=== PATIENT | female | born 1960 | race Caucasian/White ===

== ENCOUNTER 2016-04-09 16:02 | Inpatient (IN) ==
[2016-04-09] MEDS ORDERED: RIZATRIPTAN ODT 5 MG TABLET PO STA (16:45)
[2016-04-09] MEDS ORDERED: ONDANSETRON 4 MG/2 ML VIAL IV STA (16:45)
[2016-04-09] MEDS ORDERED: SODIUM CHLORIDE 0.9% 1,000 ML IV ONE (16:45)
[2016-04-09] MEDS ORDERED: LABETALOL 20 MG/4 ML SYRINGE IV ONE ×2 (16:48→18:11)
[2016-04-09] MEDS ORDERED: LABETALOL 20 MG/4 ML SYRINGE IV STA ×2 (16:54→18:50)
--- NOTE | 2016-04-09 16:55 | Emergency Department Note ---
Lin Garza Gwan, am scribing for, and in the presence of, Julio César Oneill MD 16 :52. Nino Garza Charles R, MD, personally performed the services described in this documentation, ascribed by Lolis Ceballos in my presence, and it is both accurate and complete 655 . Arrival - Arrival Chief Complaint: Nausea/Vomiting/Diarrhea Stated Complaint: Nausea and vomiting ED Nursing Triage Note: Started vomitting after taking Trulicity this Am. States that it usually makes her nauseated and take Zofran for it but was not releived by the zofran. Denies abdominal pain Mode of Arrival: Stretcher Limitations: No Limitations Source: Patient, Family, Old Records Reviewed, RN Notes Reviewed Time Seen by Provider: 04/09/16 16:21 - History of Present Illness HPI Narrative: Pt is a 55 y/o female, with a hx of IDDM and HTN, who presents to the ED for further evaluation of N/V and weakness with an onset this morning. Patient stated that 30 minutes after she took her Trulicity shot this morning she began to have N/V and weakness followed by a WEBSTER prompting her visit to the ED today. She confirmed that she takes her shot at the same time every morning and that she has been taking it for the past 3-4 months. Patient denies any weight loss or having these sxs before. She stated that she ate before taking her shot with no problems. Patient denies smoking cigarettes, drug or ETOH use. Family noted that is not compliant with medication prescribed for DM or HTN. No other problems/complaints reported in ED. Onset (ago): hour(s) Consistency: constant Severity: moderate Allergies/Adverse Reactions: Allergies Allergy/AdvReac Type Severity Reaction Status Date / Time SARA Inhibitors Allergy ITCHING Verified 08/21/14 19:09 Home Medications: Home Medications Medication Instructions Recorded Confirmed Type Canagliflozin [Invokana] 300 mg PO AC BREAKFAST 08/21/14 04/09/16 History HYDROcodone/ACETAMIN 10-325 [[place] 1 tablet PO Q6H PRN 08/21/14 04/09/16 History 10-325] Amitriptyline HCl [Amitriptyline 50 mg PO BEDTIME 04/09/16 04/09/16 History HCl] Carvedilol [Carvedilol] 25 mg PO BID 04/09/16 04/09/16 History Dulaglutide [Trulicity] 1.5 mg SUBCUT TH 04/09/16 04/09/16 History Duloxetine HCl [Duloxetine] 60 mg PO DAILY 04/09/16 04/09/16 History Levothyroxine Tab [Synthroid Tab] 112 mcg PO DAILY@0700 04/09/16 04/09/16 History Ondansetron HCl [Ondansetron HCl] 4 mg PO Q8H PRN 04/09/16 04/09/16 History Pregabalin [Lyrica] 100 mg PO TID 04/09/16 04/09/16 History Pyridoxine Tab [Vitamin B6 Tab] 100 mg PO DAILY 04/09/16 04/09/16 History Review of System - Review of System 12 point system: reviewed and no additional remarkable complaints except as stated - Review of System Constitutional: Present: as per HPI, weakness Gastrointestinal: Present: as per HPI, nausea, vomiting Medical,Surgical,& Family Hx - Medical History Cardio: History of: Hypertension Psychological: History of: Depression Endocrine: History of: Diabetes Mellitus (IDDM) Gastrointestinal: History of: Pancreatitis Musculoskeletal: History of: Back/Neck Problems - Surgical History Abdominal Surgeries: Surgical HX of: Cholecystectomy Reproductive Surgeries: Surgical HX of;: Section, Hysterectomy Orthopedic Surgeries: Surgical HX of;: Total Knee Replacement - Social History Smoking Status: Never smoker Frequency of Alcohol Use: None Type of Drug Use: None Exam Vital Signs: Vital Signs Temperature 97.1 F L 04/09/16 16:06 Pulse Rate 107 H 04/09/16 16:06 Respiratory Rate 18 04/09/16 16:06 Blood Pressure 181/111 04/09/16 16:06 O2 Sat by Pulse Oximetry 98 04/09/16 16:06 - General General appearance: alert, lethargic, other (generalized weakness; moves slowly) - Head Head exam: Present: atraumatic, normocephalic - Eye Eye exam: Present: normal appearance, PERRL, EOMI - ENT ENT exam: Present: normal exam, normal oropharynx, mucous membranes moist, TM's normal bilaterally - Neck Neck exam: Present: full ROM, trachea midline. Absent: tenderness, meningismus , lymphadenopathy, thyromegaly - Chest Chest inspection: Present: symmetric chest wall rise. Absent: tenderness - Respiratory Respiratory exam: Present: normal lung sounds bilaterally. Absent: respiratory distress - Cardiovascular Cardiovascular exam: Present: regular rate, normal rhythm, normal heart sounds. Absent: murmur, rubs, gallop - Abdominal Exam Abdominal exam: Present: soft, normal bowel sounds. Absent: distention, tenderness, guarding - Extremities Exam Extremities exam: Present: full ROM. Absent: tenderness, pedal edema, calf tenderness - Back Exam Back exam: Present: full ROM. Absent: tenderness - Neurological Exam Neurological exam: Present: alert, oriented X3, CN II-XII intact. Absent: motor sensory deficit - Psychiatric Psychiatric exam: Present: flat affect - Skin Skin exam: Present: warm, dry, intact, normal color Course - Consultations Consultation #1: Dr. Ambrose will admit patient Time: 19:17 Results - Labs CBC & BMP: 04/09/16 17:55 04/09/16 17:55 Lab Results: I have reviewed the patients labs Labs: Laboratory Tests 04/09/16 17:55 WBC 9.4 RBC 5.33 Hgb 15.7 Hct 46.0 MCV 86.3 L Plt Count 245 MPV 9.3 L Neut % (Auto) 81.5 H Lymph % (Auto) 16.0 L [place] % (Auto) 1.4 L Neut # (Auto) 7.6 H [place] # (Auto) 0.1 L Laboratory Tests 04/09/16 17:55 Sodium 142 Potassium 4.3 Chloride 107 Carbon Dioxide 23 Anion Gap 16.3 H BUN 14 Creatinine 0.50 L BUN/Creatinine Ratio 28.00 H Glucose 214 H Calcium 8.4 L Alkaline Phosphatase 129 H - Diagnostic Findings Procedure: Abdominal x-ray: report reviewed by me (Nonobstructive bowel gas pattern with no free air. Prior cholecystectomy. ), Chest x-ray: report reviewed by me (No acute cardiopulmonary pathology identified. ), CT: report reviewed by me (Head: No acute intracranial abnormality is identified. ) Critical Care Time Critical Care Time: Yes Total Critical Care Time: 60 Disposition Clinical Impression: Gastroenteritis, Gastroparesis, Headache, Uncontrolled hypertension Case discussed with: patient, patient's family Disposition: Still a Patient Condition: Guarded Time of Disposition: 19:20
[2016-04-09] MEDS ORDERED: RIZATRIPTAN ODT 5 MG TABLET PO ONE (16:57)
[2016-04-09] MEDS ORDERED: ONDANSETRON 4 MG/2 ML VIAL ONE (16:57)
--- NOTE | 2016-04-09 17:25 | XRay Report ---
Portable chest Date: 04/09/2016 Clinical history: Generalized abdominal pain Comparison: 10/16/2012 Technique: Portable AP sitting chest Findings: The heart is normal in size. The lungs are clear. Unremarkable mediastinum and osseous structures. Impression: No acute cardiopulmonary pathology identified. PROCEDURE INTERPRETED AT [facility] DEPARTMENT OF RADIOLOGY Final Report Signed by: Dr. Phyllis Sorensen
--- NOTE | 2016-04-09 17:26 | XRay Report ---
Exam: XR abdomen 2V Date: 04/09/2016 4:54 PM Comparison: None Indication: Generalized abdominal pain Technique:[Supine and left lateral decubitus abdomen] Findings: Nonobstructed bowel gas pattern with no free air. Prior cholecystectomy. Degenerative changes are noted. Nonspecific calcifications in the pelvis. Impression: Nonobstructive bowel gas pattern with no free air. Prior cholecystectomy. PROCEDURE INTERPRETED AT [facility] DEPARTMENT OF RADIOLOGY Final Report Signed by: Dr. Phyllis Sorensen
--- NOTE | 2016-04-09 17:40 | CT Report ---
Referring physician: Julio César Oneill Exam: CT brain without contrast Date: 04/09/2016 Comparison: 08/21/2014 Reason: Headache Technique: Axial images of the head were obtained without the use of contrast. Total DLP was 1025.60 mGy*cm. Findings: No hydrocephalus or midline shift is present. There is no evidence of an acute infarction, recent intracranial hemorrhage or abnormal mass effect. The osseous structures appear intact. The mastoid air cells and visualized paranasal sinuses are clear. Impression: No acute intracranial abnormality is identified. The CT exam was performed using one or more of the following dose reduction techniques: Automated exposure control and adjustment of the mA and/or kV according to patient size. PROCEDURE INTERPRETED AT [facility] DEPARTMENT OF RADIOLOGY Final Report Signed by: Dr. Phyllis Sorensen
[2016-04-09] MEDS ORDERED: PROMETHAZINE 25 MG/1 ML VIAL ONE (17:47)
[2016-04-09 18:10] LABS: Basophils # 0.1 10*3/uL (0.0-0.2); Basophils % 0.6 % (0.0-0.8); Eosinophils % 0.1 % (0.00-10.9); Hemoglobin 15.7 GM/DL (12.0-16.0); Immature Granulocytes % 0.4 %; Immature Granulocytes Absolute 0.04 #; Lymphocytes # 1.5 10*3/uL (1.4-4.0); Mean Corpuscular HGB Conc 34.1 GM/DL (32-36); Mean Corpuscular Hemoglobin 30 PG (27-34); Mean Corpuscular Volume 86.3 FL (87-102); Mean Platelet Volume 9.3 FL (9.6-12.0); Monocytes # 0.1 10*3/uL (0.11-0.8); Monocytes % 1.4 % (1.7-12.7); Neutrophils # 7.6 10*3/uL (1.4-7.4); Neutrophils % 81.5 % (38.7-73.9); Platelet Count 245 T/CUMM (130-400); Red Blood Count 5.33 MC/CUMM (3.8-5.5); Red Cell Distribution Width 13.2 % (9.3-17.3); White Blood Count 9.4 T/CUMM (4-12)
[2016-04-09 18:31] LABS: Alanine Aminotransferase 33 U/L (13-56); Albumin 4.1 G/DL (3.4-5.0); Alkaline Phosphatase 129 U/L (45-117); Amylase 32 U/L (25-115); Aspartate Amino Transferase 14 U/L (0-37); Blood Urea Nitrogen 14 MG/DL (7-18); Calcium 8.4 MG/DL (8.5-10.1); Glucose 214 MG/DL (74-106); Magnesium 2.3 MG/DL (1.8-2.4); Osmolality,Calculated 289.1 MOS/KG (273-304); Potassium 4.3 MMOL/L (3.5-5.1); Sodium 142 MMOL/L (136-145); Total Protein 7.1 G/DL (6.4-8.3); Troponin I Only < 0.015 NG/ML (0.00-0.045)
[2016-04-09] MEDS ORDERED: METOCLOPRAMIDE 10 MG/2 ML VIAL IV STA (18:56)
[2016-04-09] MEDS ORDERED: METOCLOPRAMIDE 10 MG/2 ML VIAL ONE (18:59)
[2016-04-09] MEDS ORDERED: niCARdipine 25 MG/10 ML VIAL IV ONE (19:10)
[2016-04-09] MEDS ORDERED: cloNIDine 0.3 MG/24 HR PATCH TRANSDERM SCH (19:30)
[2016-04-09 19:53] LABS: Apearance,Urine CLEAR (Clear); Bilirubin,Urine Negative (Negative); Blood, Urine Negative (Negative); Glucose,Urine (UA) >=500 mg/dL (Negative); Ketones,Urine 80 mg/dL (Negative); Nitrite,Urine Negative (Negative); Protein,Urine 30 MG/DL; RBC,Urine <1 /HPF (0-4); Squamous Epithelial Cell,Urine Occasional /HPF (0-10); Urine Color Straw (Yellow); Urine Specific Gravity 1.023 (1.001-1.035); Urine Urobilinogen < 2.0 EU/DL (0.2-1.0); WBC,Urine 28 /HPF (0-6)
[2016-04-09] MEDS ORDERED: PROMETHAZINE 25 MG/1 ML VIAL IM PRN (20:43)
[2016-04-09] MEDS ORDERED: METOPROLOL TARTRATE 5 MG/5 ML VIAL IV PRN (20:43)
[2016-04-09] MEDS ORDERED: NIFEdipine 10 MG CAPSULE PO PRN (20:43)
[2016-04-09] MEDS ORDERED: ENOXAPARIN 40 MG/0.4 ML SYRINGE SUBCUT SCH (20:43)
[2016-04-09] MEDS: FAMOTIDINE 20 MG/2 ML VIAL IV SCH (21:29)
[2016-04-09] MEDS: MORPHINE 2 MG/1 ML SYRINGE IV PRN (21:29)
[2016-04-09] MEDS: SODIUM CHLORIDE 0.9% 1,000 ML IV SCH (21:31)
--- NOTE | 2016-04-09 21:33 | Hospitalist History & Physical ---
Assessment and Plan (1) Malignant hypertension Status: Acute Assessment and plan: The patient has had malignant hypertension emergency room which is hypertension greater than 200 mmHg systolic associated with headache nausea and vomiting. The patient has received intravenous labetalol and will be observed in the critical care area. We will use Cardene infusion if required and in the meantime start the patient on Catapres patch and use IV metoprolol as needed. Current Visit: Yes (2) Medication adverse effect Problem details: Trulicity Status: Acute Assessment and plan: The patient appears to have adverse effect of trulicity. We'll hold that medication and restart her oral medications tomorrow if her nausea and vomiting improved. In the meantime we will use sliding scale insulin as required for glycemic control. Current Visit: Yes (3) DM2 (diabetes mellitus, type 2) Status: Acute Current Visit: Yes Qualifiers: Diabetes mellitus complication status: with hyperglycemia (4) Headache Status: Acute Current Visit: Yes History of Present Illness Chief complaint: nausea, vomiting and headache History of present illness: Ms. Forbes is a 55 year old female patient of Dr. Witt. The patient has been treated for diabetes mellitus type 2 with triglycerides he for about 3 months. The patient has had mild to moderate nausea with her weekly injections. On the date of admission the hospital the patient had severe reaction with intractable vomiting which did not improve with injected anti-medic medications in the emergency room. The symptom was moderate to severe, continuous, and has now begun to improve. The patient's symptom was associated with malignant hypertension and severe headache. The patient is now admitted to coronary care unit for further supportive care and observation. The patient denies fever, chills, abdominal pain, dysuria. Home Medications Medication Instructions Recorded Confirmed Type Canagliflozin [Invokana] 300 mg PO AC BREAKFAST 08/21/14 04/09/16 History HYDROcodone/ACETAMIN 10-325 [[place] 1 tablet PO Q6H PRN 08/21/14 04/09/16 History 10-325] Amitriptyline HCl [Amitriptyline 50 mg PO BEDTIME 04/09/16 04/09/16 History HCl] Carvedilol [Carvedilol] 25 mg PO BID 04/09/16 04/09/16 History Dulaglutide [Trulicity] 1.5 mg SUBCUT 04/09/16 04/09/16 History Duloxetine HCl [Duloxetine] 60 mg PO DAILY 04/09/16 04/09/16 History Levothyroxine Tab [Synthroid Tab] 112 mcg PO DAILY@0700 04/09/16 04/09/16 History Ondansetron HCl [Ondansetron HCl] 4 mg PO Q8H PRN 04/09/16 04/09/16 History Pregabalin [Lyrica] 100 mg PO TID 04/09/16 04/09/16 History Pyridoxine Tab [Vitamin B6 Tab] 100 mg PO DAILY 04/09/16 04/09/16 History Allergies Allergy/AdvReac Type Severity Reaction Status Date / Time SARA Inhibitors Allergy ITCHING Verified 08/21/14 19:09 Medical,Surgical,& Family Hx - Medical History Cardio: History of: Hypertension Psychological: History of: Depression Endocrine: History of: Diabetes Mellitus (NIDDM) Gastrointestinal: History of: Pancreatitis Musculoskeletal: History of: Back/Neck Problems - Surgical History Abdominal Surgeries: Surgical HX of: Cholecystectomy Reproductive Surgeries: Surgical HX of;: Section, Hysterectomy Orthopedic Surgeries: Surgical HX of;: Total Knee Replacement - Family History Family History: Reports;: Family Hypertension - Social History Smoking Status: Never smoker Frequency of Alcohol Use: None Type of Drug Use: None Marital Status: Lives With:: Alone Functional capacity: independent ambulation 12 point system: reviewed and no additional remarkable complaints except as stated Exam - Constitutional Vitals: Period Temp Pulse Resp BP Sys/Gee Pulse Ox Last 24 Hr 72-78 18-20 165-178/81-102 96-98 Exam: Constitutional System: Moderate distress. No tremulousness. The patient is now on the critical care area and vomiting has resolved. The patient remains very nauseated and weak. Head: Normocephalic, atraumatic. Ears, Nose and Throat System: No evidence of Otitis or Mastoiditis. No epistaxis or discharge Eyes System: Pupils equal, round, and reactive. Extraocular muscles intact. Neck: Supple, without adenopathy, No jugular venous distention. No thyromegaly , neck mass, or prior surgery apparent. Respiratory System: Chest clear to auscultation. Cardiovascular System: Heart with regular rate and rhythm. No murmur. GI System: Abdomen soft, nontender. Normoactive bowel sounds present. Musculoskeletal System: limbs with no pedal edema. Full distal pulses. Neurological System: No discernable sensory deficit. No aphasia Psychiatric System: Conversation is rational Results - Labs CBC & BMP: 04/09/16 17:55 04/09/16 17:55 Lab Results: I have reviewed the past 24 hour labs Quality Measures - Stroke Onset of Symptoms Date: 04/09/16
[2016-04-09] MEDS: ONDANSETRON 4 MG/2 ML VIAL IV PRN (23:00)
[2016-04-10] MEDS: MORPHINE 2 MG/1 ML SYRINGE IV PRN ×2 (00:47→08:13)
[2016-04-10 05:10] LABS: Basophils # 0.1 10*3/uL (0.0-0.2); Basophils % 0.6 % (0.0-0.8); Hematocrit 45.9 VOL% (35.7-47.0); Hemoglobin 15.8 GM/DL (12.0-16.0); Immature Granulocytes % 0.4 %; Immature Granulocytes Absolute 0.04 #; Lymphocytes % 20.8 % (21.3-54.2); Mean Corpuscular HGB Conc 34.4 GM/DL (32-36); Mean Corpuscular Hemoglobin 30 PG (27-34); Mean Corpuscular Volume 86.1 FL (87-102); Mean Platelet Volume 9.4 FL (9.6-12.0); Monocytes # 0.2 10*3/uL (0.11-0.8); Monocytes % 2.1 % (1.7-12.7); Neutrophils # 7.4 10*3/uL (1.4-7.4); Neutrophils % 76.1 % (38.7-73.9); Platelet Count 282 T/CUMM (130-400); Red Blood Count 5.33 MC/CUMM (3.8-5.5); Red Cell Distribution Width 13.5 % (9.3-17.3); White Blood Count 9.7 T/CUMM (4-12)
[2016-04-10 05:49] LABS: Blood Urea Nitrogen 17 MG/DL (7-18); Calcium 8.7 MG/DL (8.5-10.1); Glucose 173 MG/DL (74-106); Magnesium 2.6 MG/DL (1.8-2.4); Potassium 4.2 MMOL/L (3.5-5.1); Sodium 143 MMOL/L (136-145); Troponin I Only < 0.015 NG/ML (0.00-0.045)
--- NOTE | 2016-04-10 06:56 | Gastrointestinal Consult Note ---
Assessment and Plan (1) Nausea and vomiting Status: Acute Assessment and plan: This sounds like a classic medication reaction to Trulicity. It started 30 minutes after injection and has been associated with medication before, she simply had a more violent reaction this time it is likely we will have to let us this medication as an allergy in the future. She does not recall any sick contacts. She has had pancreatitis in the past but is not displaying any elevated pancreatic enzymes. The onset and violence of the nausea and vomiting could also be associated with a gastroenteritis but the patient denies any sick contacts or eating anything unusual. Gastroparesis usually presents with bloating and not in his violent fashion as we are seeing here--this is not gastroparesis. She is not vomiting any blood and seems better this morning. She does not require endoscopy. Simple observation should be adequate for this acute episode. She will likely be able to tolerate oral medications today as she is feeling much better. We may consider using Protonix for the next 1 week on a daily basis due to the esophagus being bathed in acid and this inducing further nausea. Current Visit: Yes (2) Screening for colon cancer Status: Acute Assessment and plan: The patient can be referred back to my office upon discharge to arrange this test if she likes. She has reached age 55 and does require routine colorectal cancer screening. I'll be happy to provide this as an outpatient. Santiago's let me know if I can be of any further help but I will sign off at this time. Thank for the interesting consult. Current Visit: Yes History of Present Illness Chief complaint: nausea/vomiting History of present illness: Ms. Forbes is a 55 year old female who has a history of hypertension who has always had a problem with injections with her diabetic medication, Trulicity ( dulagludite)-- this is always produce some nausea and vomiting and the patient however 30 minutes after taking her most recent dose yesterday the patient developed intractable nausea and vomiting, she estimates approximately 20-30 times. She did not vomit any blood. She did vomit all of her pain medications and started developing hypertension which brought her to the emergency room with a systolic greater than 200 mmHg. The medication is a single injection per week, and she is already starting to improve as far as her nausea with the help of Zofran. She does not recall eating anything unusual nor having any sick contacts. White blood cell count has been stable at 9.7. Hematocrit is actually good at 45.9. She is not feeling any particular abdominal pain, she does not recall any other medications. Her headache is improved. I have been consulted because of her nausea and vomiting. She does have some mild constipation at baseline which does produce minimal pain in keeping with constipation predominant irritable bowel syndrome. She usually just takes a stool softener for this, she does have compensatory diarrhea when she passes the stool after 5 days. She has not seen gastroenterology previously for any sort of scopes. She has had a history of cholecystitis and cholecystectomy, she has had pancreatitis in the past presumably gallbladder induced; she denies alcoholism. Home Medications Medication Instructions Recorded Confirmed Type Canagliflozin [Invokana] 300 mg PO AC BREAKFAST 08/21/14 04/09/16 History HYDROcodone/ACETAMIN 10-325 [[place] 1 tablet PO Q6H PRN 08/21/14 04/09/16 History 10-325] Amitriptyline HCl [Amitriptyline 50 mg PO BEDTIME 04/09/16 04/09/16 History HCl] Carvedilol [Carvedilol] 25 mg PO BID 04/09/16 04/09/16 History Dulaglutide [Trulicity] 1.5 mg SUBCUT TH 04/09/16 04/09/16 History Duloxetine HCl [Duloxetine] 60 mg PO DAILY 04/09/16 04/09/16 History Levothyroxine Tab [Synthroid Tab] 112 mcg PO DAILY@0700 04/09/16 04/09/16 History Ondansetron HCl [Ondansetron HCl] 4 mg PO Q8H PRN 04/09/16 04/09/16 History Pregabalin [Lyrica] 100 mg PO TID 04/09/16 04/09/16 History Pyridoxine Tab [Vitamin B6 Tab] 100 mg PO DAILY 04/09/16 04/09/16 History Allergies Allergy/AdvReac Type Severity Reaction Status Date / Time SARA Inhibitors Allergy ITCHING Verified 08/21/14 19:09 Medical,Surgical,& Family Hx - Medical History Cardio: History of: Hypertension Psychological: History of: Depression Endocrine: History of: Diabetes Mellitus (IDDM), Diabetes Mellitus (NIDDM) Gastrointestinal: History of: Pancreatitis Musculoskeletal: History of: Back/Neck Problems Hematology: No history of: Blood Transfusion Reaction Other: No history of: Anesthesia Reactions, Anaphylaxis, Cancer - Surgical History Thoracic Surgeries: Patient denies;: Organ Transplant Neurologic Surgeries: Patient denies: Neurologic Surgery Abdominal Surgeries: Surgical HX of: Cholecystectomy Reproductive Surgeries: Surgical HX of;: Section, Hysterectomy Orthopedic Surgeries: Surgical HX of;: Total Knee Replacement - Family History Family History: Reports;: Family Diabetes, Family Heart Disease, Family Hypertension, Family Stroke - Social History Smoking Status: Never smoker Frequency of Alcohol Use: None Type of Drug Use: None Review of systems: Constitutional: Denies fever, chills, but yesterday had some extreme nausea, and vomiting Eyes: Denies dry eyes, and scleral icterus HENT: She did have fairly severe headache Cardiovascular: Denies acute chest pain and claudication Respiratory: Denies shortness of breath, wheezing, and difficulty breathing, denies cough Gastrointestinal: As noted in the HPI Genitourinary: Denies dysuria and hematuria Neurologic: Denies vision loss, and loss of sensation Musculoskeletal: Occasional joint swelling, joint stiffness, and muscular weakness Psychiatric: The patient does have some depression but no shruthi symptoms, she does have chronic pain Heme-Lymph: Denies easy bruising, lymph node enlargement or tenderness, night sweats, excessive bleeding Allergies-immunologic: Denies pruritus and rhinorrhea Exam - Constitutional Vitals: Period Temp Pulse Resp BP Sys/Gee Pulse Ox Last 24 Hr 96.4 F-96.7 F 72-117 12-20 125-178/81-118 95-100 General appearance: no acute distress - Head Head exam: Present: normocephalic, atraumatic - Eye Eye exam: Present: EOMI - Respiratory Respiratory exam: Present: clear to auscultation bilaterally. Absent: rhonchi, stridor, wheezes - Cardiovascular Cardiovascular exam: Present: regular rate and rhythm - GI/Abdominal GI/Abdominal exam: Present: normal bowel sounds, soft, other (rectal exam was brown and guaiac negative). Absent: ascites, distended, guarding, tenderness, rebound - Back Exam Back exam: Present: normal inspection - Neurological Exam Neurological exam: Present: alert, oriented X3, CN II-XII intact. Absent: motor sensory deficit - Psychiatric Psychiatric exam: Present: normal affect, depressed - Skin Skin exam: Present: warm Results - Labs CBC & BMP: 04/10/16 04:41 04/10/16 04:41 Quality Measures - Stroke Onset of Symptoms Date: 04/09/16
--- NOTE | 2016-04-10 08:01 | EKG Report ---
Stationary ECG Study [facility] Test Date: 04/10/2016 8:00:43 AM Pat Name: ANY MOSER Department: Room: 128 Gender: F [employer] Worker: AMBER : [id number] Requested by: Ceasar Ambrose Order Number: [id number] Reading MD: NIK GUTIERREZ Intervals [place] Rate: 114 P: 83 TN: 164 QRS: 19 QRSD: 90 T: 110 QT: 290 QTc: 357 Interpretive Statements SINUS TACHYCARDIA Electronically Signed On 04-11-16 17:10:52 REPAIRER HELPER by NIK GUTIERREZ [email or web address]
[2016-04-10] MEDS: SODIUM CHLORIDE 0.9% 1,000 ML IV SCH (08:15)
--- NOTE | 2016-04-10 09:08 | Physician Query Form ---
CLICK EDIT DOCUMENT TO SELECT QUERY ANSWER --> OK --> SIGN Kellie Lara RN Clinical Spot Checker W) [phone] (f) [phone] [email or web address] PROVIDERS: Make your selection(s) from the choices in EACH section by typing an "x" and enter comments in the comment section. Please use your independent medical judgment in providing your response. This request does not imply that any particular answer is desired or expected. CLINCAL INDICATORS: (Providers should not edit this section) Based on documentation of "acute malignant hypertension", BP of 179/120, pt. treated with IV Labetalol. Note: Hypertensive crises can present as hypertensive urgency or hypertensive emergency. Clarify which, if any of the following, is a more accurate diagnosis reflecting the type and acuity of the documented hypertension: TYPE: ( ) Hypertensive Urgency (X ) Hypertensive Emergency ( ) Uncontrolled chronic hypertension at baseline ( ) Other, please specify: ( ) Clinically unable to determine Criteria Source - Up to Date (This topic last updated: May 01, 2015) HYPERTENSIVE URGENCY: Severe hypertension (usually a diastolic blood pressure above 120 mmHg) in asymptomatic patients is referred to as hypertensive urgency. There is no proven benefit from rapid reduction in blood pressure in asymptomatic patients who have no evidence of acute end-organ damage and are at little short-term risk. HYPERTENSIVE EMERGENCY: Severe hypertension (usually a diastolic blood pressure above 120 mmHg) with evidence of acute end-organ damage is defined as a hypertensive emergency. A hypertensive emergency can be life threatening and requires immediate treatment, usually with parenteral medications in a monitored setting. COMMENTS: Use of terms such as suspected, likely, or probable (associated with a specific diagnosis that is being evaluated, monitored, or treated as if it exists) are acceptable and can be restated in the discharge summary if not ruled out. MTDD
[2016-04-10] MEDS: FAMOTIDINE 20 MG/2 ML VIAL IV SCH (10:12)
[2016-04-10] MEDS ORDERED: ONDANSETRON 4 MG TABLET PO PRN (11:08)
--- NOTE | 2016-04-10 11:12 | Discharge Summary ---
Hospital Course - Hospital Course Hospital Course: The patient was admitted to the hospital with abrupt onset intractable nausea and vomiting associated with headache and it occurred after tremulousness after Trulicity injection. Vomiting resolved over several hours. GI consultation with Dr. Romano confirmed his opinion that Trulicity drug effect was the likely cause of nausea and vomiting. The patient is improved and ready for discharge home. She has some residual headache which should improve with supportive care at home On the date of discharge, chest clear, abdomen soft, are has regular rate and rhythm. - Time spent with patient Time with patient DS: Greater than 30 minutes Diagnosis - Discharge Diagnosis (1) Malignant hypertension Status: Resolved (2) Medication adverse effect Status: Acute (3) DM2 (diabetes mellitus, type 2) Status: Chronic (4) Headache Status: Acute Discharge Plan - Discharge Data Disposition: Disch To Home/Self Care Condition at Discharge: Stable Discharge Diet: diabetic diet Activity: resume usual activities as tolerated Hygiene: no restrictions - Discharge Medications Continue HYDROcodone/ACETAMIN 10-325 [[place] 10-325] 1 tablet PO Q6H PRN PRN Reason: Pain Canagliflozin [Invokana] 300 mg PO AC BREAKFAST Pyridoxine Tab [Vitamin B6 Tab] 100 mg PO DAILY Pregabalin [Lyrica] 100 mg PO TID Ondansetron HCl 4 mg PO Q8H PRN PRN Reason: Nausea Levothyroxine Tab [Synthroid Tab] 112 mcg PO DAILY@0700 Duloxetine HCl [Duloxetine] 60 mg PO DAILY Carvedilol 25 mg PO BID Amitriptyline HCl 50 mg PO BEDTIME Discontinued Dulaglutide [Trulicity] 1.5 mg SUBCUT TH - Follow Up or Referral Follow Up: Your,PCP [Other] - Forms/Instructions Exam - Constitutional Vitals: Period Temp Pulse Resp BP Sys/Gee Pulse Ox Last 24 Hr 96.4 F-98.0 F 72-117 12-20 125-178/81-118 95-100 Discharge Results Procedures and tests throughout hospitalization: Pending Orders 04/09/16 Urine Culture Routine 04/10/16 MRSA Surveillence, Inf Control Stat Labs on day of discharge: Labs from last 24 hours 04/10/16 04/10/16 04/10/16 04:41 04:41 04:41 WBC 9.7 RBC 5.33 Hgb 15.8 Hct 45.9 MCV 86.1 L MCH 30 MCHC 34.4 RDW 13.5 Plt Count 282 MPV 9.4 L Neut % (Auto) 76.1 H Lymph % (Auto) 20.8 L [place] % (Auto) 2.1 Eos % (Auto) 0.0 Baso % (Auto) 0.6 Neut # (Auto) 7.4 Lymph # (Auto) 2.0 [place] # (Auto) 0.2 Eos # (Auto) 0.0 Baso # (Auto) 0.1 Immature Gran % 0.4 Nucleated RBC % 0.0 Immature Gran # 0.04 Nucleated RBCs # 0.00 Sodium 143 Potassium 4.2 Chloride 105 Carbon Dioxide 16 L Anion Gap 26.2 H BUN 17 Creatinine 0.50 L GFR Calculation 98 BUN/Creatinine Ratio 34.00 H Glucose 173 H Calculated Osmolality 290.0 Calcium 8.7 Magnesium 2.6 H Total Creatine Kinase 30 Troponin I < 0.015 B-Natriuretic Peptide 22 Urine Color Urine Appearance Urine pH Ur Specific [place] Urine Protein Urine Glucose (UA) Urine Ketones Urine Blood Urine Nitrate Urine Bilirubin Urine Urobilinogen Urine Leukocytes Urine RBC Urine WBC Ur Squamous Epith Cells Ur Culture Indicated? 04/09/16 19:34 WBC RBC Hgb Hct MCV MCH MCHC RDW Plt Count MPV Neut % (Auto) Lymph % (Auto) [place] % (Auto) Eos % (Auto) Baso % (Auto) Neut # (Auto) Lymph # (Auto) [place] # (Auto) Eos # (Auto) Baso # (Auto) Immature Gran % Nucleated RBC % Immature Gran # Nucleated RBCs # Sodium Potassium Chloride Carbon Dioxide Anion Gap BUN Creatinine GFR Calculation BUN/Creatinine Ratio Glucose Calculated Osmolality Calcium Magnesium Total Creatine Kinase Troponin I B-Natriuretic Peptide Urine Color Straw Urine Appearance Clear Urine pH 5.0 Ur Specific [place] 1.023 Urine Protein 30 Urine Glucose (UA) >=500 Urine Ketones 80 Urine Blood Negative Urine Nitrate Negative Urine Bilirubin Negative Urine Urobilinogen < 2.0 H Urine Leukocytes Trace Urine RBC <1 Urine WBC 28 Ur Squamous Epith Cells Occasional Ur Culture Indicated? Results to follow Preliminary micro results at discharge 04/09/16 Unknown Urine Culture - Preliminary Urine,Voided No Growth at 12 hours. DS: Provider Date of admission: 04/09/16 19:19 Primary care physician: . No PCP Attending physician on admission: Ceasar Ambrose MD Discharging clinician: Ceasar Ambrose MD
[2016-04-10] MEDS ORDERED: DULoxetine 30 MG CAPSULE PO SCH (11:15)
[2016-04-10] MEDS ORDERED: NON-FORMULARY MEDICATION (Canagliflozin [Invokana] 300 MG) PO SCH (11:15)
[2016-04-10] MEDS ORDERED: PYRIDOXINE 100 MG TABLET PO SCH (11:30)
[2016-04-10] MEDS ORDERED: CARVEDILOL 25 MG TABLET PO SCH (11:30)
[2016-04-10] MEDS ORDERED: PREGABALIN 100 MG CAPSULE PO SCH (15:00)
[2016-04-10] MEDS: ONDANSETRON 4 MG/2 ML VIAL IV PRN (19:07)
[2016-04-10 19:18] VITALS: BP 167/103
[2016-04-10] MEDS ORDERED: AMITRIPTYLINE 50 MG TABLET PO SCH (21:00)
[2016-04-11] MEDS ORDERED: LEVOTHYROXINE 112 MCG TABLET PO SCH (07:00)
== END 2016-04-10 19:35 | disposition home or self-care (01) | DRG 918 ==
LOC: EDBD → EDUNIT# → N.ED 16:02 → N.EDINP 19:19 → N.CC 20:30
PROVIDERS: ADMIT Internal Medicine; ATTEND Internal Medicine